=== PATIENT | male | born 1970 | race Caucasian/White ===

== ENCOUNTER 2017-04-16 21:11 | Emergency (ER) | payer BC ==
--- NOTE | 2017-04-16 21:16 | EDM.PDOC ---
ED HPI GENERAL MEDICAL PROBLEM - General Chief Complaint: Skin Complaint Stated Complaint: fish hook stuck in thumb Time Seen by Provider: 04/16/17 21:12 Source of Information: Reports: Patient, Family, RN, RN Notes Reviewed History Limitations: Reports: No Limitations - History of Present Illness INITIAL COMMENTS - FREE TEXT/NARRATIVE: Patient presents to the ED at [facility] with a fish hook embedded into the palmar surface of the left thumb. Accident occurred about 1 hour [employer]. Tetanus status address. No previous injury or trauma. Patient tried and was unable to dislodge the hook. - Related Data Allergies Allergy/AdvReac Type Severity Reaction Status Date / Time No Known Allergies Allergy Verified 04/16/17 21:16 Home Meds: Home Meds Omeprazole Magnesium [Prilosec Otc] 20 mg PO DAILY 04/16/17 [History] ED ROS GENERAL - Review of Systems Review Of Systems: See Below Constitutional: Denies: Fever, Chills, Weakness Respiratory: Denies: Shortness of Breath, Cough Cardiovascular: Denies: Chest Pain, Palpitations Skin: Reports: Wound (fish hook stuck in left thumb) Neurological: Reports: No Symptoms ED EXAM, SKIN/RASH Exam: See Below Exam Limited By: No Limitations General Appearance: Alert, No Apparent Distress Respiratory/Chest: No Respiratory Distress, Lungs Clear, Normal Breath Sounds Cardiovascular: Regular Rate, Rhythm Peripheral Pulses: 2+: Radial (L), Radial (R) Neurological: Alert, Oriented Skin: Warm, Dry, Normal Color, No Rash, Wound/Incision (Fish hook embedded into the palmar surface of left thumb; no bleeding; no evidence of infection) ED SKIN PROCEDURES - Foreign Body Removal Indication:: Fish hook embedded into palmar surface of left thumb Consent Obtained:: Patient Performing Doctor:: Jackson Vogel Anesthesia Type: Local Complications:: No Comments:: Left thumb numbed with 3cc of plain 1% Lidocaine. Once adequate anesthesia was achieved, an #11 blade use to incise skin. Fish hook was removed without complication. 3 4-0 Nylon sutures placed for ensure hemostasis. Course - Vital Signs Last Recorded V/S: Last Vital Signs Temp 36.4 C 04/16/17 21:19 Pulse 80 04/16/17 21:19 Resp 16 04/16/17 21:19 BP 143/97 H 04/16/17 21:19 Pulse Ox 96 04/16/17 21:19 - Orders/Labs/Meds Orders: Active Orders 24 hr Category Date Time Status Vaccines to be Administered [RC] PER UNIT ROUTINE Care 04/16/17 21:19 Active Meds: Medications Discontinued Medications Generic Name Dose Route Start Last Admin Trade Name Anu PRN Reason Stop Dose Admin Diphtheria/Tetanus/Acell Pertussis 0.5 ml 04/16/17 21:19 Adacel IM 04/16/17 21:20 .ONCE ONE Lidocaine HCl 5 ml 04/16/17 21:15 04/16/17 21:18 Xylocaine-Mpf 1% INJECT 04/16/17 21:16 5 ml ONETIME ONE Administration Departure - Departure Time of Disposition: 21:44 Disposition: Home, Self-Care 01 Condition: Good Clinical Impression: Fish hook injury of left thumb Qualifiers: Encounter type: initial encounter Qualified Code(s): S69.92XA - Unspecified injury of left wrist, hand and finger(s), initial encounter - Discharge Information Instructions: Laceration Care, Adult, Sutured Wound Care Referrals: Mercedez Morley PA-C [Primary Care Provider] - Forms: ED Department Discharge Additional Instructions: 1. Stay well hydrated and rest 2. Use Advil/Tylenol for pain once anesthesia wears off 3. Suture to stay in for 10 days 4. See Mercedez Morley for a follow up in 10 days for a recheck and possible suture removal 5. Keep area clean and dry 6. May shower/bathe as usual 7. Call with any questions or concerns - Problem List Review Problem List Initiated/Reviewed/Updated: Yes - My Orders Last 24 Hours: My Active Orders 04/16/17 21:19 Vaccines to be Administered [RC] PER UNIT ROUTINE - Assessment/Plan Last 24 Hours: My Active Orders 04/16/17 21:19 Vaccines to be Administered [RC] PER UNIT ROUTINE
[2017-04-16] MEDS ORDERED: Diphtheria,Pertussis(Acell),Tetanus Vaccine 0.5 ML Syringe IM ONE (21:19)
[2017-04-16 21:22] VITALS: BP 143/97
== END 2017-04-16 21:52 | disposition home or self-care (01) ==
LOC: VM.ED 21:11
DX: S60.352A Superficial foreign body of left thumb, initial encounter (principal); Z23 Encounter for immunization; Z79.899 Other long term (current) drug therapy; W45.8XXA Other foreign body or object entering through skin, initial encounter
CPT/HCPCS: 10120; 99283